=== PATIENT | female | born 1975 ===

== ENCOUNTER 2017-04-08 21:36 | Emergency (ER) | payer OTHER ==
[2017-04-08 21:36] VITALS: BMI 19.8
[2017-04-08 22:07] VITALS: RESP 16; TEMP 98.5
[2017-04-08] MEDS ORDERED: Sodium Chloride 0.9% 1,000 ML IV STA (22:24)
--- NOTE | 2017-04-08 22:43 | ED PDOC ---
Arrival/HPI - General Chief Complaint: Abdominal Pain Time Seen by Provider: 04/08/17 21:51 Historian: Patient - History of Present Illness Narrative History of Present Illness (Text): 04/08/17 22:46 A 41 year old female presents to the emergency department complaining of right sided abdominal pain that developed two days ago. Patient denies any nausea, vomiting, fever, chills, dysuria or any other complaints at this time. 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) - Renal Hx Renal Disorder: No - Endocrine/Metabolic Hx Endocrine Disorders: No - Hematological/Oncological Hx Blood Disorders: No - Integumentary Hx Dermatological Disorder: No - Musculoskeletal/Rheumatological Hx Musculoskeletal Disorders: No - Gastrointestinal Hx Gastrointestinal Disorders: No Hx Gastroesophageal Reflux: Yes - Genitourinary/Gynecological Hx Genitourinary Disorders: No - Psychiatric Hx Psychophysiologic Disorder: Yes Hx Anxiety: Yes Hx Substance Use: No - Past Surgical History Past Surgical History: No Previous - Surgical History Hx Tonsillectomy: Yes - Anesthesia Hx Anesthesia: Yes Hx Anesthesia Reactions: No Hx Malignant Hyperthermia: No - Suicidal Assessment Feels Threatened In Home Enviroment: No Family/Social History - Physician Review Nursing Documentation Reviewed: Yes Family/Social History: No Known Family HX Smoking Status: Former Smoker Hx Alcohol Use: No Hx Substance Use: No Allergies/Home Meds Allergies/Adverse Reactions: Allergies No Known Allergies Allergy (Verified 09/26/16 03:34) Home Medications: Home Meds Medication Instructions Recorded Confirmed Protonix 40 mg PO DAILY 06/05/16 07/17/16 L. Acidophilus/L.bulgaricus 1 tab PO DAILY 07/17/16 07/17/16 [Floranex 0.2 mg-0.2 mg] Review of Systems - Physician Review All systems were reviewed & negative as marked: Yes - Review of Systems Constitutional: absent: Fevers, Other (chills) Gastrointestinal: Abdominal Pain (R sided). absent: Nausea, Vomiting Genitourinary Female: absent: Dysuria Physical Exam Vital Signs Reviewed: Yes Vital Signs Temp Pulse Resp BP Pulse Ox 04/08/17 22:05 98.5 F 76 16 119/88 99 Temperature: Afebrile Blood Pressure: Normal Pulse: Regular Respiratory Rate: Normal Appearance: Positive for: Well-Appearing, Non-Toxic, Comfortable Pain Distress: None Mental Status: Positive for: Alert and Oriented X 3 - Systems Exam Head: Present: Atraumatic, Normocephalic Pupils: Present: PERRL Extroacular Muscles: Present: EOMI Conjunctiva: Present: Normal Mouth: Present: Moist Mucous Membranes Neck: Present: Normal Range of Motion Respiratory/Chest: Present: Clear to Auscultation, Good Air Exchange. No: Respiratory Distress, Accessory Muscle Use Cardiovascular: Present: Regular Rate and Rhythm, Normal S1, S2. No: Murmurs Abdomen: Present: Normal Bowel Sounds. No: Tenderness, Distention, Peritoneal Signs Back: Present: Normal Inspection Upper Extremity: Present: Normal Inspection. No: Cyanosis, Edema Lower Extremity: Present: Normal Inspection. No: Edema Neurological: Present: GCS=15, CN II-XII Intact, Speech Normal Skin: Present: Warm, Dry, Normal Color. No: Rashes Psychiatric: Present: Alert, Oriented x 3, Normal Insight, Normal Concentration Medical Decision Making ED Course and Treatment: 04/08/17 22:40 Impression: A 41 year old female with right sided abdominal pain. Plan: -- CT abd/pelvis -- labs -- Urinalysis -- Toradol, IV fluids, Zofran -- Reassess and disposition Prior Visits: Notes and results from previous visits were reviewed. Patient was last seen in the emergency department on 09/26/16 for evaluation of lower abdominal pain. Progress Notes: CT Abdomen and Pelvis Without Intravenous Contrast FINDINGS: Lower thorax: The bilateral lung bases are clear. ABDOMEN: Liver: The liver is enlarged. Gallbladder and bile ducts: The gallbladder is decompressed, without calcified stones. No intraextrahepatic biliary ductal dilation. Pancreas: Limited evaluation secondary to the lack of intravenous contrast. Spleen: No acute findings. Adrenals: No acute findings. Kidneys and ureters: No obstructing stones. No hydronephrosis. PELVIS: Bladder: No acute findings. Reproductive: No acute findings. Appendix: The appendix is of normal caliber. ABDOMEN and PELVIS: Stomach and bowel: No acute findings. Peritoneum: No acute findings. Lymph nodes: Limited evaluation without intravenous contrast. Vasculature: No aortic aneurysm. Bones: No acute fracture. IMPRESSION: Hepatic enlargement. Otherwise, unremarkable noncontrast CT examination of the abdomen and pelvis, as detailed above. Dictated and Authenticated by: Blank Rao MD 04/09/2017 1:18 AM Eastern Time ([place] & [place]) Re-evaluation Time: 01:44 Reassessment Condition: Re-examined, Improved - Lab Interpretations Lab Results: 04/08/17 23:05 04/08/17 23:05 Lab Results 04/08/17 23:05: Sodium 139, Potassium 3.7, Chloride 102, Carbon Dioxide 26, Anion Gap 15, BUN 13, Creatinine 0.8, Est GFR ( Amer) > 60, Est GFR (Non- Af Amer) > 60, Random Glucose 74, Calcium 9.2, Total Bilirubin 0.5, AST 28, ALT 23, Alkaline Phosphatase 45, Total Protein 7.7, Albumin 4.5, Globulin 3.2, Albumin/Globulin Ratio 1.4, Lipase 68 04/08/17 23:05: PT 10.7, INR 0.99, APTT 26.8 04/08/17 23:05: WBC 8.5, RBC 4.39, Hgb 12.9, Hct 37.5, MCV 85.4, MCH 29.4, MCHC 34.4, RDW 13.7, Plt Count 345, MPV 9.4, Gran % 70.4 H, Lymph % (Auto) 24.0, [place] % (Auto) 4.7, Eos % (Auto) 0.5 L, Baso % (Auto) 0.4, Gran # 6.00, Lymph # 2.0, [place] # 0.4, Eos # 0.0, Baso # 0.03 04/08/17 22:15: Urine Color Yellow, Urine Appearance Clear, Urine pH 6.0, Ur Specific [place] 1.020, Urine Protein Negative, Urine Glucose (UA) Negative, Urine Ketones Negative, Urine Blood Moderate H, Urine Nitrate Negative, Urine Bilirubin Negative, Urine Urobilinogen 0.2, Ur Leukocyte Esterase Trace H, Urine RBC 0 - 2, Urine WBC 1 - 3, Ur Epithelial Cells 1 - 3, Urine Bacteria Few , Urine HCG, Qual Negative I have reviewed the lab results: Yes - RAD Interpretation Radiology Orders: 04/08/17 23:44 ABD & PELVIS W/O PO OR IV CONT [CT] Stat - Medication Orders Current Medication Orders: Sodium Chloride (Sodium Chloride 0.9%) 1,000 mls @ 100 mls/hr IV .Q10H STA Stop: 04/09/17 08:23 Last Admin: 04/08/17 23:11 Dose: 100 mls/hr Discontinued Medications Ketorolac Tromethamine (Toradol) 30 mg IVP STAT STA Stop: 04/08/17 22:25 Last Admin: 04/08/17 23:11 Dose: 30 mg Ondansetron HCl (Zofran Inj) 4 mg IVP STAT STA Stop: 04/08/17 22:25 Last Admin: 04/08/17 23:10 Dose: 4 mg - Scribe Statement The provider has reviewed the documentation as recorded by the Chen Vallejo Provider Scribe Attestation: All medical record entries made by the Scribharshad were at my direction and personally dictated by me. I have reviewed the chart and agree that the record accurately reflects my personal performance of the history, physical exam, medical decision making, and the department course for this patient. I have also personally directed, reviewed, and agree with the discharge instructions and disposition. Disposition/Present on Arrival - Present on Arrival Any Indicators Present on Arrival: No History of DVT/PE: No History of Uncontrolled Diabetes: No Urinary Catheter: No History of Decub. Ulcer: No History Surgical Site Infection Following: None - Disposition Have Diagnosis and Disposition been Completed?: Yes Diagnosis: Abdominal pain Disposition: HOME/ ROUTINE Disposition Time: 01:45 Condition: GOOD Discharge Instructions (ExitCare): Abdominal Pain (ED) Prescriptions: Pantoprazole Sodium [Protonix] 40 mg PO DAILY #14 ect Referrals: Marie Scanlon DO [Primary Care Provider] - Follow up with primary Forms: Guidefitter (Mongolian)
[2017-04-08 23:14] LABS: BASO # 0.03 K/mm3 (0.0-2.0); BASO % 0.4 % (0.0-3.0); EOS % 0.5 % (1.5-5.0); GRAN % 70.4 % (50.0-68.0); HEMOGLOBIN 12.9 gm/dL (12.0-16.0); MEAN CELL VOLUME 85.4 fL (80.0-105.0); MEAN CORPUSCULAR HEMOGLOBIN 29.4 pg (25.0-35.0); MEAN CORPUSCULAR HGB CONC 34.4 g/dl (31.0-37.0); MEAN PLATELET VOLUME 9.4 fl (7.0-11.0); MONO # 0.4 (0.1-0.6); MONO % 4.7 % (1.0-6.0); PLATELET COUNT 345 10^3/uL (120.0-450.0); RBC 4.39 10^6/uL (3.5-6.1); RED CELL DISTRIBUTION WIDTH 13.7 % (11.5-14.5); WHITE BLOOD COUNT 8.5 10^3/ul (4.5-11.0)
[2017-04-08 23:25] LABS: INR 0.99 (0.93-1.08); PARTIAL THROMBOPLASTIN TIME 26.8 Seconds (23.7-30.8); PROTHROMBIN TIME 10.7 Seconds (9.9-11.8)
[2017-04-08 23:30] LABS: URINE BILIRUBIN NEGATIVE (NEGATIVE); URINE BLOOD MODERATE (NEGATIVE); URINE GLUCOSE (UA) NEGATIVE (NEGATIVE); URINE LEUKOCYTE ESTERASE TRACE Leu/uL (NEGATIVE); URINE NITRATE NEGATIVE (NEGATIVE); URINE PROTEIN NEGATIVE mg/dL (<30 mg/dL); URINE UROBILINOGEN 0.2 E.U./dL (<1 E.U./dL)
[2017-04-08 23:32] LABS: URINE COLOR YELLOW (YELLOW)
[2017-04-08 23:34] LABS: URINE APPEARANCE CLEAR (CLEAR)
[2017-04-08 23:35] LABS: HCG,QUALITATIVE URINE NEGATIVE (NEGATIVE); URINE BACTERIA FEW (NEG); URINE RBC 0 - 2 /hpf (0-2)
[2017-04-08 23:37] LABS: ALB/GLOB RATIO 1.4 (1.1-1.8); ALBUMIN 4.5 g/dL (3.0-4.8); ALT/SGPT 23 U/L (7-56); AST/SGOT 28 U/L (15-39); BLOOD UREA NITROGEN 13 mg/dL (7-21); CALCIUM 9.2 mg/dL (8.4-10.5); GFR AFRICAN-AMERICAN > 60; GFR NON-AFRICAN AMERICAN > 60; LIPASE 68 U/L (23-300)
--- NOTE | 2017-04-09 01:19 | CT ---
EXAM: CT Abdomen and Pelvis Without Intravenous Contrast CLINICAL HISTORY: 41 years old, female; Pain; Abdominal pain; Additional info: Rt flank pain TECHNIQUE: Axial computed tomography images of the abdomen and pelvis without intravenous contrast. This CT exam was performed using one or more of the following dose reduction techniques: automated exposure control, adjustment of the mA and/or kV according to patient size, and/or use of iterative reconstruction technique. Coronal and sagittal reformatted images were created and reviewed. COMPARISON: CT - ABD PELVIS PO IV CONTRAST 07/17/2016 5:22:12 PM FINDINGS: Lower thorax: The bilateral lung bases are clear. ABDOMEN: Liver: The liver is enlarged. Gallbladder and bile ducts: The gallbladder is decompressed, without calcified stones. No intra-extrahepatic biliary ductal dilation. Pancreas: Limited evaluation secondary to the lack of intravenous contrast. Spleen: No acute findings. Adrenals: No acute findings. Kidneys and ureters: No obstructing stones. No hydronephrosis. PELVIS: Bladder: No acute findings. Reproductive: No acute findings. Appendix: The appendix is of normal caliber. ABDOMEN and PELVIS: Stomach and bowel: No acute findings. Peritoneum: No acute findings. Lymph nodes: Limited evaluation without intravenous contrast. Vasculature: No aortic aneurysm. Bones: No acute fracture. IMPRESSION: Hepatic enlargement. Otherwise, unremarkable noncontrast CT examination of the abdomen and pelvis, as detailed above.
[2017-04-09 03:37] VITALS: BP 126/84; PULSE 74; O2SAT 100
== END 2017-04-09 01:46 | disposition home or self-care (01) ==
LOC: ED 21:36
DX: R10.9 Unspecified abdominal pain (principal); K21.9 Gastro-esophageal reflux disease without esophagitis
CPT/HCPCS: 74176; 80053; 81001; 83690; 84703; 85025; 85610; 85730; 87086; 96374; 96375; 99282; J1885; J2405; J7040

== ENCOUNTER 2017-05-05 21:42 | Emergency (ER) | payer OTHER ==
[2017-05-05 21:42] VITALS: BMI 19.8
[2017-05-05 22:01] VITALS: PULSE 68; RESP 17; TEMP 98.3; O2SAT 100
[2017-05-05] MEDS ORDERED: Sodium Chloride 0.9% 1,000 ML IV STA (22:09)
--- NOTE | 2017-05-05 22:16 | ED PDOC ---
Arrival/HPI - General Chief Complaint: GI Problem Time Seen by Provider: 05/05/17 22:05 Historian: Patient - History of Present Illness Narrative History of Present Illness (Text): 05/05/17 22:09 41 year old female, whose past medical history includes GERD, presents to the emergency department complaining of vomiting that began today. Patient states she's been nauseous for the past week and a half. She reports her last menstrual period was April 02, 2017 and is a week late. Patient also states she seen vaginal bleed spotting that began April 18, 2017. She took a test that came out negative. Patient states to have nausea, vomiting, constipation, vaginal bleed spotting, but denies any fever, chills, chest pain, shortness of breath, urinary symptoms, back pain, neck pain, headache, dizziness , or any other complaints. She reports occasional suprapubic cramping x today. 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) - Renal Hx Renal Disorder: No - Endocrine/Metabolic Hx Endocrine Disorders: No - Hematological/Oncological Hx Blood Disorders: No - Integumentary Hx Dermatological Disorder: No - Musculoskeletal/Rheumatological Hx Musculoskeletal Disorders: No - Gastrointestinal Hx Gastrointestinal Disorders: No Hx Gastroesophageal Reflux: Yes - Genitourinary/Gynecological Hx Genitourinary Disorders: No - Psychiatric Hx Psychophysiologic Disorder: Yes Hx Anxiety: Yes Hx Substance Use: No - Past Surgical History Past Surgical History: No Previous - Surgical History Hx Tonsillectomy: Yes - Anesthesia Hx Anesthesia: Yes Hx Anesthesia Reactions: No Hx Malignant Hyperthermia: No - Suicidal Assessment Feels Threatened In Home Enviroment: No Family/Social History - Physician Review Nursing Documentation Reviewed: Yes Family/Social History: No Known Family HX Smoking Status: Former Smoker Hx Alcohol Use: No Hx Substance Use: No Allergies/Home Meds Allergies/Adverse Reactions: Allergies No Known Allergies Allergy (Verified 09/26/16 03:34) Home Medications: Home Meds Medication Instructions Recorded Confirmed Pantoprazole [Protonix] 40 mg PO BID 05/05/17 05/05/17 Review of Systems - Physician Review All systems were reviewed & negative as marked: Yes - Review of Systems Constitutional: absent: Fevers, Other (Chills) Respiratory: absent: SOB Cardiovascular: absent: Chest Pain Gastrointestinal: Constipation, Nausea (A week and a half ago), Vomiting (Began today) Genitourinary Female: Vaginal Bleeding (Spotting that began 17 days ago) Musculoskeletal: absent: Back Pain, Neck Pain Neurological: absent: Headache, Dizziness Physical Exam Vital Signs Temp Pulse Resp BP Pulse Ox 05/05/17 23:25 68 17 109/71 100 05/05/17 21:57 98.3 F 68 17 131/78 100 Temperature: Afebrile Blood Pressure: Normal Pulse: Regular Respiratory Rate: Normal Appearance: Positive for: Well-Appearing, Non-Toxic, Comfortable Pain Distress: None Mental Status: Positive for: Alert and Oriented X 3 - Systems Exam Head: Present: Atraumatic, Normocephalic Pupils: Present: PERRL Extroacular Muscles: Present: EOMI Conjunctiva: Present: Normal Mouth: Present: Moist Mucous Membranes Neck: Present: Normal Range of Motion Respiratory/Chest: Present: Clear to Auscultation, Good Air Exchange. No: Respiratory Distress, Accessory Muscle Use Cardiovascular: Present: Regular Rate and Rhythm, Normal S1, S2. No: Murmurs Abdomen: Present: Normal Bowel Sounds. No: Tenderness, Distention, Peritoneal Signs Back: Present: Normal Inspection Upper Extremity: Present: Normal Inspection. No: Cyanosis, Edema Lower Extremity: Present: Normal Inspection. No: Edema Neurological: Present: GCS=15, CN II-XII Intact, Speech Normal Skin: Present: Warm, Dry, Normal Color. No: Rashes Psychiatric: Present: Alert, Oriented x 3, Normal Insight, Normal Concentration Medical Decision Making ED Course and Treatment: 05/05/17 22:09 Impression: 41 year old female present complaining of vomiting that began today. She is requesting test due to late menses Plan: -- Labs -- IV Fluids -- Urine Test -- Urinalysis -- Reassess and disposition Prior Visits: Notes and results from previous visits were reviewed. On 04/08/2017 patient came in complaining of of right sided abdominal pain that began two days ago. Patient was discharged. Progress Notes: 05/05/17 23:19 Labs normal. Bhcg negative. UA shows hematuria but patient reports spotting and likely due to mentrusal bleeding. She does not understand why her menstrual cycle was late and is instructed on the importance of following up with computing machine operator. On reevaluation she is tolerating po with soft NT/ND abdomen. - Lab Interpretations Lab Results: 05/05/17 22:30 05/05/17 22:30 Lab Results 05/05/17 22:30: Beta HCG, Quant < 2.39 05/05/17 22:30: Sodium 138, Potassium 3.8, Chloride 101, Carbon Dioxide 27, Anion Gap 14, BUN 17, Creatinine 0.9, Est GFR ( Amer) > 60, Est GFR (Non- Af Amer) > 60, Random Glucose 71, Calcium 9.3, Phosphorus 4.0, Magnesium 1.7, Total Bilirubin 0.6, AST 34, ALT 17, Alkaline Phosphatase 40, Total Protein 7.3 , Albumin 4.2, Globulin 3.0, Albumin/Globulin Ratio 1.4, Lipase 76 05/05/17 22:30: Urine Color Yellow, Urine Appearance Clear, Urine pH 5.5, Ur Specific [place] >= 1.030, Urine Protein Negative, Urine Glucose (UA) Negative, Urine Ketones Negative, Urine Blood Small H, Urine Nitrate Negative, Urine Bilirubin Negative, Urine Urobilinogen 0.2, Ur Leukocyte Esterase Negative, Urine RBC 5 - 10, Urine WBC 0 - 2, Ur Epithelial Cells 3 - 4 05/05/17 22:30: WBC 9.6, RBC 4.19, Hgb 12.3, Hct 36.2, MCV 86.4, MCH 29.4, MCHC 34.0, RDW 13.8, Plt Count 286, MPV 9.3, Gran % 67.0, Lymph % (Auto) 27.3, [place] % (Auto) 4.6, Eos % (Auto) 0.9 L, Baso % (Auto) 0.2, Gran # 6.40, Lymph # 2.6, [place] # 0.4, Eos # 0.1, Baso # 0.02 I have reviewed the lab results: Yes - Medication Orders Current Medication Orders: Discontinued Medications Sodium Chloride (Sodium Chloride 0.9%) 1,000 mls @ 999 mls/hr IV .Q1H1M STA Stop: 05/05/17 23:09 Last Admin: 05/05/17 22:36 Dose: 999 mls/hr Ondansetron HCl (Zofran Inj) 4 mg IVP STAT STA Stop: 05/05/17 22:10 Last Admin: 05/05/17 22:36 Dose: 4 mg - Scribe Statement The provider has reviewed the documentation as recorded by the Estrellaibharshad Nguyen All medical record entries made by the Chen were at my direction and personally dictated by me. I have reviewed the chart and agree that the record accurately reflects my personal performance of the history, physical exam, medical decision making, and the department course for this patient. I have also personally directed, reviewed, and agree with the discharge instructions and disposition. Disposition/Present on Arrival - Present on Arrival Any Indicators Present on Arrival: No History of DVT/PE: No History of Uncontrolled Diabetes: No Urinary Catheter: No History of Decub. Ulcer: No History Surgical Site Infection Following: None - Disposition Have Diagnosis and Disposition been Completed?: Yes Diagnosis: Vomiting Disposition: HOME/ ROUTINE Disposition Time: 23:20 Patient Plan: Discharge Condition: GOOD Discharge Instructions (ExitCare): Acute Nausea and Vomiting (ED) Additional Instructions: Follow up with PMD within 2 days. Return to ED if condition worsens. Referrals: Marie Scanlon DO [Primary Care Provider] - Follow up with primary
[2017-05-05 22:43] LABS: PH,URINE 5.5 (4.7-8.0); URINE BILIRUBIN NEGATIVE (NEGATIVE); URINE BLOOD SMALL (NEGATIVE); URINE GLUCOSE (UA) NEGATIVE (NEGATIVE); URINE KETONE NEGATIVE (NEGATIVE); URINE LEUKOCYTE ESTERASE NEGATIVE Leu/uL (NEGATIVE); URINE PROTEIN NEGATIVE mg/dL (<30 mg/dL); URINE UROBILINOGEN 0.2 E.U./dL (<1 E.U./dL)
[2017-05-05 22:44] LABS: BASO # 0.02 K/mm3 (0.0-2.0); BASO % 0.2 % (0.0-3.0); EOS # 0.1 (0.0-0.7); EOS % 0.9 % (1.5-5.0); GRAN # 6.4 (1.4-6.5); HEMATOCRIT 36.2 % (36.0-48.0); LYMPH # 2.6 (1.2-3.4); LYMPH % 27.3 % (22.0-35.0); MEAN CELL VOLUME 86.4 fl (80.0-105.0); MEAN CORPUSCULAR HEMOGLOBIN 29.4 pg (25.0-35.0); MEAN PLATELET VOLUME 9.3 fl (7.0-11.0); MONO # 0.4 (0.1-0.6); MONO % 4.6 % (1.0-6.0); RED CELL DISTRIBUTION WIDTH 13.8 % (11.5-14.5); URINE APPEARANCE CLEAR (CLEAR); URINE COLOR YELLOW (YELLOW); WHITE BLOOD COUNT 9.6 10^3/ul (4.5-11.0)
[2017-05-05 22:46] LABS: URINE WBC 0 - 2 /hpf (0-6)
[2017-05-05 22:54] LABS: ALB/GLOB RATIO 1.4 (1.1-1.8); ALKALINE PHOSPHATASE 40 U/L (38-133); ALT/SGPT 17 U/L (7-56); AST/SGOT 34 U/L (15-39); BILIRUBIN,TOTAL 0.6 mg/dL (0.2-1.3); BLOOD UREA NITROGEN 17 mg/dL (7-21); CALCIUM 9.3 mg/dL (8.4-10.5); CARBON DIOXIDE 27 mmol/L (21-33); CHLORIDE 101 mmol/L (95-110); GFR AFRICAN-AMERICAN > 60; GLUCOSE,RANDOM 71 mg/dL (70-110); LIPASE 76 U/L (23-300); MAGNESIUM 1.7 mg/dL (1.7-2.2); POTASSIUM 3.8 mmol/L (3.6-5.0); SODIUM 138 mmol/L (132-148); TOTAL PROTEIN 7.3 g/dL (5.8-8.3)
[2017-05-05 23:33] VITALS: BP 109/71
== END 2017-05-05 23:33 | disposition home or self-care (01) ==
LOC: ED 21:42
DX: R11.10 Vomiting, unspecified (principal)
CPT/HCPCS: 80053; 81001; 83690; 83735; 84100; 84702; 85025; 96361; 96374; 99284; J2405; J7040